=== PATIENT | male | born 1985 | race Caucasian/White ===

== ENCOUNTER 2020-10-28 15:19 | Emergency (ER) | payer OTHER ==
[~2020-10-28 15:19] MED LIST: IBUPROFEN600 MG PO; NORCO 5-325 TA1 EACH PO; TORADOL 10 MG T10 MG PO; ZOFRAN ODT4 MG PO
[2020-10-28 16:18] LABS: HEMOGLOBIN 15.3 gm/dl (14.0-17.5); RED BLOOD COUNT 5.09 M/UL (4.20-5.50); WHITE BLOOD COUNT 16.7 K/UL (4.5-11.0)
[2020-10-28 16:45] LABS: BUN/CREATININE RATIO 15 (0-10)
[2020-10-28] MEDS ORDERED: ONDANSETRON ODT4 MG SL (19:20)
[2020-10-28] MEDS ORDERED: K-DUR TAB 20 M20 MEQ PO (19:20)
[2020-10-28] MEDS ORDERED: PROTONIX40 MG PO (19:20)
== END 2020-10-28 19:50 | disposition home or self-care (01) ==
LOC: ER1 15:19
PROVIDERS: Physician Assistant
DX: R10.11 Right upper quadrant pain (principal); R10.12 Left upper quadrant pain; R10.13 Epigastric pain; E86.0 Dehydration; E87.6 Hypokalemia; I10 Essential (primary) hypertension; Z87.442 Personal history of urinary calculi; Z79.899 Other long term (current) drug therapy; F17.200 Nicotine dependence, unspecified, uncomplicated; Z20.822 Contact with and (suspected) exposure to COVID-19
CPT/HCPCS: 76705; 80053; 81001; 83690; 85025; 96365; 96366; 96375; 99284; C9113; J2405; J3480; Q9967; U0002